=== PATIENT | female | born 1985 | race Two or more races ===

== ENCOUNTER 2025-03-11 16:01 | Emergency (ER) | payer MEDICAID ==
[~2025-03-11] VITALS: Ht 167.6 cm; Wt 103.4 kg
[2025-03-11 16:20] VITALS: BP 137/83; RESP 16; TEMP 98.5; O2SAT 97
[2025-03-11 16:29] VITALS: PULSE 71
[2025-03-11 23:00] LABS: Urine Bacteria FEW /hpf (None Seen); Urine Blood 2+ /uL (Negative); Urine Clarity Clear (Clear); Urine Color Light-Yellow (Yellow); Urine Protein, UAD TRACE (Negative); Urine Specific Gravity 1.043 (1.001-1.035); Urine Squamous Epithelial Cell MOD /hpf (<5); Urine Urobilinogen Normal (Negative); Urine WBC 38 /HPF (0-5)
--- NOTE | 2025-03-14 20:45 | ECG ---
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
== END 2025-03-11 18:52 | disposition left against medical advice (07) ==
LOC: ER 16:01
DX: M79.602 Pain in left arm (principal); Z53.21 Procedure and treatment not carried out due to patient leaving prior to being seen by health care provider
CPT/HCPCS: 81001; 93005

== ENCOUNTER 2025-03-11 22:29 | Emergency (ER) | payer MEDICAID ==
[~2025-03-11] VITALS: Ht 167.6 cm; Wt 103.2 kg
--- NOTE | 2025-03-11 22:40 | ECG ---
[facility] Test Date: 2025-03-11 Test Time: 22:34:58 Pat Name: HUNTER PATRICK Department: ED Room: Gender: F Engine Assembler: SHAMAR : 1985 Requested By: EMERGENCY EMERGENCY Order Number: [id number] Reading MD: Nils Beaver Measurements Intervals [place] Rate: 76 P: 41 TN: 200 QRS: 19 QRSD: 103 T: 37 QT: 414 QTc: 466 Interpretive Statements Sinus rhythm Electronically Signed On 03-14-2025 20:48:44 PDT by Nils Beaver Please click the below link to view image of tracing.
[2025-03-12 00:29] LABS: Basophils # (auto) 0 10 ^3/uL (0-0.2); Basophils % (auto) 0.3 % (0.0-2.0); Eosinophils # (auto) 0.1 10 ^3/uL (0-0.8); Eosinophils % (auto) 0.8 % (0.0-7.0); Hematocrit 42.1 % (36.0-46.0); Lymphocytes # (auto) 3.4 10 ^3/uL (0.4-5.4); Lymphocytes % (auto) 40.8 % (10.0-50.0); Mean Corpuscular Hemoglobin 25.1 pg (28.0-32.0); Mean Corpuscular Hgb Conc. 33.2 g/dL (32.0-36.0); Mean Corpuscular Volume 75.5 fL (80.0-100.0); Monocytes # (auto) 0.5 10 ^3/uL (0-1.3); Monocytes % (auto) 6.5 % (0.0-12.0); Neutrophils # (auto) 4.3 10 ^3/uL (1.6-8.6); Neutrophils % (auto) 51.6 % (37.0-80.0); Nucleated Red Blood Cells % 0.1 %; Platelet Count (auto) 278 10^3/uL (140-450); Red Blood Cells 5.57 10^6/uL (4.0-5.20); Red Cell Distribution Width 14.8 % (11.8-14.3); White Blood Cell 8.3 10^3/uL (4.4-10.8)
[2025-03-12 00:48] LABS: Albumin 4.7 g/dL (3.2-4.8); Alkaline Phosphatase 71 U/L (46-116); Anion Gap 9 (5-15); Aspartate Aminotransferase 32 U/L (13-40); BUN/Creatinine Ratio 9.9 (10.0-20.0); Blood Urea Nitrogen 9 mg/dL (9-23); Carbon Dioxide 26 mmol/L (20-31); Chloride 100 mmol/L (98-107); Lipase 37 U/L (12-53); Potassium 3.8 mmol/L (3.5-5.1)
[2025-03-12 00:49] LABS: Bilirubin, Total 0.6 mg/dL (0.2-1.0)
[2025-03-12 01:04] LABS: Alanine Aminotransferase 76 U/L (7-40); Glucose 299 mg/dL (74-106); Sodium 135 mmol/L (136-145)
--- NOTE | 2025-03-12 01:36 | DVH ---
CHEST RADIOGRAPH Indication: cp Technique: Single frontal view of the chest was obtained COMPARISON: None FINDINGS: Lines and Tubes: None Lungs: Clear Pleura: No effusion. No pneumothorax. Cardiomediastinal contours: Unremarkable IMPRESSION: No abnormality demonstrated.
--- NOTE | 2025-03-12 02:22 | ED.PDOC ---
History of Present Illness HPI Comments Patient states yesterday she was started having bilateral arm pain which came on unprovoked. She initially came to emergency department in the left case she had �things take care of�. She came back tonight because she was still feeling he was mild chest pressure and shortness a breath. States she does have a history of anxiety, she was states she was also been stress. Nothing makes it better, nothing makes it worse. Patient denies any chest pain currently. She was states she was has been feeling some mild shortness a breath. She was says she feels as though she was a hard time catching her breath. Chief Complaint: Shortness of Breath Time Seen by MD: 23:51 Primary Care Provider: ? 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 Family History Family History: No family hx of DM Social History Smoker: Non-Smoker Alcohol: Denies ETOH Use Drugs: Denies Drug Use Lives In: Home Constitutional: reports: malaise; denies: chills, diaphoresis, fatigue, fever, sweats, weakness, others EENTM: denies: blurred vision, double vision, ear bleeding, ear discharge, ear drainage, ear pain, ear ringing, eye pain, eye redness, hearing loss, mouth pain, mouth swelling, nasal discharge, nose bleeding, nose congestion, nose pain, photophobia, tearing, throat pain, throat swelling, voice changes, others Respiratory: reports: SOB at rest; denies: cough, hemoptysis, orthopnea, shortness of breath, SOB with excertion, stridor, wheezing, others Cardiovascular: denies: chest pain, dizzy spells, diaphoresis, Dyspnea on exertion, edema, irregular heart beat, left arm pain, lightheadedness, palpitations, PND, syncope, others Gastrointestinal: denies: abdomen distended, abdominal pain, blood streaked bowels, constipated, diarrhea, dysphagia, difficulty swallowing, hematemesis, melena, nausea, poor appetite, poor fluid intake, rectal bleeding, rectal pain, vomiting, others Genitourinary: denies: abnormal vagina bleeding, burning, dyspareunia, dysuria, flank pain, frequency, hematuria, incontinence, pain, , vagina discharge, urgency, others Neurological: denies: dizziness, fainting, headache, left sided numbness, left sided weakness, numbness, paresthesia, pre-existing deficit, right sided numbness, right sided weakness, seizure, speech problems, tingling, tremors, weakness, others Musculoskeletal: denies: back pain, gout, joint pain, joint swelling, muscle pain, muscle stiffness, neck pain, others Integumetry: denies: bruises, change in color, change in hair/nails, dryness, laceration, lesions, lumps, rash, wounds, others Allergic/Immunocompromised: denies: Difficulty Healing, Frequent Infections, Hives, Itching, others Hematologic/Lymphatic: denies: anemia, blood clots, easy bleeding, easy bruising, swollen glands, others Physical Exam General Appearance: No Apparent Distress, Normal HEENT: Normal ENT Inspection, Pharynx Normal, TMs Normal Neck: Full Range of Motion, Non-Tender, Normal, Normal Inspection Respiratory: Chest Non-Tender, Lungs Clear, No Accessory Muscle Use, No Respiratory Distress, Normal Breath Sounds Cardiovascular: No Edema, No JVD, No Murmur, No Gallop, Normal Peripheral Pulses, Regular Rate/Rhythm Breast Exam: Deferred Gastrointestinal: No Organomegaly, Non Tender, No Pulsatile Mass, Normal Bowel Sounds, Soft Genitalia: Deferred Pelvic: Deferred Rectal: Deferred Extremities: No calf tenderness, Normal capillary refill, Normal inspection, Normal range of motion, Non-tender, No pedal edema Musculoskeletal : Apperance: Normal Neurologic: Alert, director medical science II-XII nml as Tested, No Motor Deficits, Normal Affect, Normal Mood, No Sensory Deficits Cerebellar Function: Normal Reflexes: Normal Skin: Dry, Normal Color, Warm Lymphatic: No Adenopathy Was a procedure done? Was a procedure done?: No Differential Dx Considerations may include: DE, gastritis, he was gastric reflux, diabetes, hyperglycemia. X-Ray, Labs, Meds, VS Vital Signs Date Time Temp Pulse Resp B/P (MAP) Pulse Ox O2 Delivery O2 Flow Rate FiO2 03/12/25 00:31 70 20 96 Room Air 03/12/25 00:31 97.8 75 20 129/89 (102) 99 97.8 03/11/25 22:45 97.9 82 18 141/92 (108) 96 97.9 03/11/25 22:34 76 Lab Test 03/12/25 00:13 Range/Units White Blood Count 8.3 4.4-10.8 10^3/uL Red Blood Count 5.57 H 4.0-5.20 10^6/uL Hemoglobin 14.0 12.2-16.2 g/dL Hematocrit 42.1 36.0-46.0 % Mean Corpuscular Volume 75.5 L 80.0-100.0 fL Mean Corpuscular Hemoglobin 25.1 L 28.0-32.0 pg Mean Corpuscular Hemoglobin Concent 33.2 32.0-36.0 g/dL Red Cell Distribution Width 14.8 H 11.8-14.3 % Platelet Count 278 140-450 10^3/uL Mean Platelet Volume 8.1 6.9-10.8 fL Neutrophils (%) (Auto) 51.6 37.0-80.0 % Lymphocytes (%) (Auto) 40.8 10.0-50.0 % Monocytes (%) (Auto) 6.5 0.0-12.0 % Eosinophils (%) (Auto) 0.8 0.0-7.0 % Basophils (%) (Auto) 0.3 0.0-2.0 % Neutrophils # (Auto) 4.3 1.6-8.6 10 ^3/uL Lymphocytes # (Auto) 3.4 0.4-5.4 10 ^3/uL Monocytes # (Auto) 0.5 0-1.3 10 ^3/uL Eosinophils # (Auto) 0.1 0-0.8 10 ^3/uL Basophils # (Auto) 0 0-0.2 10 ^3/uL Nucleated Red Blood Cells 0.1 % Sodium Level 135 L 136-145 mmol/L Potassium Level 3.8 3.5-5.1 mmol/L Chloride Level 100 98-107 mmol/L Carbon Dioxide Level 26 20-31 mmol/L Anion Gap 9 5-15 Blood Urea Nitrogen 9 9-23 mg/dL Creatinine 0.91 0.550-1.02 mg/dL Glomerular Filtration Rate Calc 82 >90 mL/min BUN/Creatinine Ratio 9.9 L 10.0-20.0 Serum Glucose 299 H 74-106 mg/dL Calcium Level 10.0 8.7-10.4 mg/dL Total Bilirubin 0.6 0.2-1.0 mg/dL Aspartate Amino Transferase (AST) 32 13-40 U/L Alanine Aminotransferase (ALT) 76 H 7-40 U/L Alkaline Phosphatase 71 46-116 U/L Troponin I High Sensitivity < 3 L </=34 ng/L Total Protein 8.0 5.7-8.2 g/dL Albumin 4.7 3.2-4.8 g/dL Lipase 37 12-53 U/L X-Ray, Labs, Meds, VS Comment Imaging: X-rays and CT scans were reviewed and interpreted by this provider, imaging shows no fractures and no pathological disease. Pending radiology review. Laboratory: Labs reviewed and interpreted by this provider. Blood sugar of 299 No prior history of diabetes, advised to follow up with PCP for further evaluation Patient has prior medical visits reviewed. Med reconciliation performed Vital signs reviewed Time of 1ST Reevaluation: 02:22 Reevaluation 1ST: Improved Patient Education/Counseling: Diagnosis, Treatment, Need For Follow Up (Follow up in the emergency department in the next 24-48 hours if symptoms worsen. It was advised to follow up with your primary care doctor in the next 3-4 days for further evaluation.) Family Education/Counseling: Diagnosis Departure 1 Departure Time of Disposition: 02:21 Impression: Primary Impression: Hyperglycemia due to diabetes mellitus Disposition: 01 HOME / SELF CARE / HOMELESS Condition: Fair Discharged With: Self Critical Care Note Critical Care Time?: No Stability Stability form required: No Heart Score Heart Score: Heart Score Response (Comments) Value History N/A 0 EKG N/A 0 Age N/A 0 Risk Factors N/A 0 Troponin N/A 0 Total 0 NELA JENSEN March 12, 2025 02:22
[2025-03-12 02:45] VITALS: BP 129/95; PULSE 75; TEMP 98.5
[2025-03-12 02:52] VITALS: RESP 16; O2SAT 98
[2025-03-14] MEDS ORDERED: BLOO1KIT XX (11:37)
[2025-03-14] MEDS ORDERED: LANC-347 XX (11:37)
[2025-03-14] MEDS ORDERED: METF-370 PO (11:37)
[2025-03-14] MEDS ORDERED: GLUC1TES63 VI (11:37)
[2025-03-14] MEDS ORDERED: NITR50CA24 PO (11:39)
== END 2025-03-12 02:51 | disposition home or self-care (01) ==
LOC: ER 22:29
DX: E11.65 Type 2 diabetes mellitus with hyperglycemia (principal); M79.601 Pain in right arm; M79.602 Pain in left arm; R06.02 Shortness of breath; R07.89 Other chest pain; Z98.890 Other specified postprocedural states
CPT/HCPCS: 36415; 71045; 80053; 83690; 84484; 85025; 93005

== ENCOUNTER 2025-03-13 15:12 | Inpatient (IN) | payer MEDICAID ==
[~2025-03-13] VITALS: Ht 170.2 cm; Wt 103.0 kg
[2025-03-13 17:15] LABS: Basophils # (auto) 0 10 ^3/uL (0-0.2); Basophils % (auto) 0.5 % (0.0-2.0); Eosinophils # (auto) 0.1 10 ^3/uL (0-0.8); Eosinophils % (auto) 0.9 % (0.0-7.0); Hematocrit 40.5 % (36.0-46.0); Hemoglobin 13.6 g/dL (12.2-16.2); Lymphocytes # (auto) 2.2 10 ^3/uL (0.4-5.4); Mean Corpuscular Hemoglobin 25.2 pg (28.0-32.0); Mean Corpuscular Hgb Conc. 33.6 g/dL (32.0-36.0); Mean Corpuscular Volume 74.9 fL (80.0-100.0); Monocytes # (auto) 0.4 10 ^3/uL (0-1.3); Monocytes % (auto) 6.5 % (0.0-12.0); Neutrophils # (auto) 3.4 10 ^3/uL (1.6-8.6); Neutrophils % (auto) 56.1 % (37.0-80.0); Nucleated Red Blood Cells % 0.3 %; Platelet Count (auto) 279 10^3/uL (140-450); Red Cell Distribution Width 15.1 % (11.8-14.3)
--- NOTE | 2025-03-13 17:22 | DVH ---
INDICATION: sob TECHNIQUE: Frontal view of the chest. COMPARISON: XY CHEST XRAY 1 VIEW on DOS: 03/12/25 FINDINGS: Finding:. The heart and mediastinal contours are grossly unremarkable. There is no evidence of pleur al disease. The lungs are clear. The bony structures of the chest are intact without fracture. IMPRESSION: 1. No evidence of acute disease.
[2025-03-13 17:26] LABS: Chloride 100 mmol/L (98-107); Potassium 3.8 mmol/L (3.5-5.1)
[2025-03-13 17:27] LABS: Anion Gap 7 (5-15); Carbon Dioxide 27 mmol/L (20-31)
[2025-03-13 17:28] LABS: Calcium 9.7 mg/dL (8.7-10.4)
[2025-03-13 17:32] LABS: Blood Urea Nitrogen 10 mg/dL (9-23)
--- NOTE | 2025-03-13 17:50 | ED.PDOC ---
History of Present Illness HPI Comments 39-year-old female presents with recent diagnosis of diabetes however patient eloped from the emergency department several days ago. Patient reports that his symptoms have worsened him with dizziness blurry vision paresthesias dry mouth frequent urination and generally feeling unwell. Chief Complaint: Shortness of Breath Time Seen by MD: 15:19 Primary Care Provider: ? 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 Family History Family History: No family hx of DM Social History Smoker: Non-Smoker Alcohol: Denies ETOH Use Drugs: Denies Drug Use Lives In: Home All Other Systems: Reviewed and Negative Physical Exam General Appearance: Normal HEENT: Pharynx Normal Neck: Normal Inspection Respiratory: No Respiratory Distress Cardiovascular: No Edema Breast Exam: Normal Gastrointestinal: Non Tender Genitalia: Deferred Pelvic: Deferred Rectal: Deferred Extremities: Normal range of motion Neurologic: No Motor Deficits Cerebellar Function: NOT DONE Reflexes: NOT DONE Skin: Normal Color Lymphatic: NOT DONE Was a procedure done? Was a procedure done?: No Differential Dx Considerations may include: Diabetes, viral syndrome, electrolyte abnormality, metabolic disarray X-Ray, Labs, Meds, VS Vital Signs Date Time Temp Pulse Resp B/P (MAP) Pulse Ox O2 Delivery O2 Flow Rate FiO2 03/13/25 15:37 16 96 Room Air 03/13/25 15:37 98.4 79 16 143/88 (106) 96 98.4 Lab Test 03/13/25 17:47 03/13/25 16:52 Range/Units Troponin I High Sensitivity < 3 L 3 L </=34 ng/L White Blood Count 6.0 # 4.4-10.8 10^3/uL Red Blood Count 5.40 H 4.0-5.20 10^6/uL Hemoglobin 13.6 12.2-16.2 g/dL Hematocrit 40.5 36.0-46.0 % Mean Corpuscular Volume 74.9 L 80.0-100.0 fL Mean Corpuscular Hemoglobin 25.2 L 28.0-32.0 pg Mean Corpuscular Hemoglobin Concent 33.6 32.0-36.0 g/dL Red Cell Distribution Width 15.1 H 11.8-14.3 % Platelet Count 279 140-450 10^3/uL Mean Platelet Volume 8.2 6.9-10.8 fL Neutrophils (%) (Auto) 56.1 37.0-80.0 % Lymphocytes (%) (Auto) 36.0 10.0-50.0 % Monocytes (%) (Auto) 6.5 0.0-12.0 % Eosinophils (%) (Auto) 0.9 0.0-7.0 % Basophils (%) (Auto) 0.5 0.0-2.0 % Neutrophils # (Auto) 3.4 1.6-8.6 10 ^3/uL Lymphocytes # (Auto) 2.2 0.4-5.4 10 ^3/uL Monocytes # (Auto) 0.4 0-1.3 10 ^3/uL Eosinophils # (Auto) 0.1 0-0.8 10 ^3/uL Basophils # (Auto) 0 0-0.2 10 ^3/uL Nucleated Red Blood Cells 0.3 % Sodium Level 134 L 136-145 mmol/L Potassium Level 3.8 3.5-5.1 mmol/L Chloride Level 100 98-107 mmol/L Carbon Dioxide Level 27 20-31 mmol/L Anion Gap 7 5-15 Blood Urea Nitrogen 10 9-23 mg/dL Creatinine 0.91 0.550-1.02 mg/dL Glomerular Filtration Rate Calc 82 >90 mL/min BUN/Creatinine Ratio 11.0 10.0-20.0 Serum Glucose 303 H 74-106 mg/dL Calcium Level 9.7 8.7-10.4 mg/dL B-Type Natriuretic Peptide 10.11 0-100 pg/mL Time of 1ST Reevaluation: 18:41 Reevaluation 1ST: Improved Patient Education/Counseling: Diagnosis, Treatment Family Education/Counseling: No Family Present Departure 1 Departure Time of Disposition: 18:41 (Patient with new onset diabetes. Diabetes uncontrolled. We will admit patient for further workup and expert consultation) Impression: Primary Impression: New onset type 2 diabetes mellitus Additional Impression: Generalized weakness Disposition: 09 ADMITTED INPATIENT Admit to: Med Surg Condition: Serious Critical Care Note Critical Care Time?: No Stability Stability form required: No Heart Score Heart Score: Heart Score Response (Comments) Value History N/A 0 EKG N/A 0 Age N/A 0 Risk Factors N/A 0 Troponin N/A 0 Total 0 AUDIE DAY MD March 13, 2025 17:50
[2025-03-13 18:07] LABS: Glucose 303 mg/dL (74-106); Sodium 134 mmol/L (136-145)
[2025-03-13] MEDS ORDERED: DEXTROSE (50%) 50ML SYRG IV PRN (19:30)
[2025-03-13 20:14] VITALS: PULSE 73; RESP 16; O2SAT 96
[2025-03-13] MEDS: ACETAMINOPHEN 325 MG TAB PO PRN (20:17)
--- NOTE | 2025-03-13 23:12 | DVHHP2 ---
History of Present Illness Reason for Visit: Generalized weakness History of Present Illness 39-year-old female presents for evaluation of generalized weakness. Patient reports being recently diagnosed with diabetes mellitus. She is currently on no medication. She reports worsening dizziness, dry mouth and frequent urination over the past couple of days. Denies chest pain or palpitations. No other acute complaints. Past Medical History Denies Past Surgical History Family History Noncontributory Smoke: No ALCOHOL: none Drugs: None Lives: with Family Review of Systems Review of Systems Review of systems are currently negative otherwise addressed in HPI. Allergies: Coded Allergies: NO KNOWN ALLERGIES (Unverified , 04/27/13) Medications Current Medications Medications Dose Ordered Sig/Gideon Route Start Time Stop Time Status Last Admin Dose Admin Diagnostic Test (Pha) 1 strip Q6HR 03/14/25 00:00 Insulin Human Regular Q6HR SC 03/14/25 00:00 Dextrose 50 ml UD PRN IV 03/13/25 19:30 Acetaminophen 650 mg Q6HP PRN PO 03/13/25 19:30 03/13/25 20:17 650 MG Exam Vital Signs Vital Signs Date Time Temp Pulse Resp B/P (MAP) Pulse Ox O2 Delivery O2 Flow Rate FiO2 03/13/25 20:17 99.2 03/13/25 20:14 73 16 133/97 (109) 96 03/13/25 20:14 Room Air* 0 21 Exam Gen: 39-year-old female in mild distress. Skin: Warm, dry, normal color and texture, no rash. HEENT: Normocephalic atraumatic, mucous membranes moist and pink. Neck: Cervical and supraclavicular nodes normal without enlargement, trachea is midline, thyroid gland is normal without masses. Pulmonary: Clear to auscultation and percussion bilaterally. Cardiac: Regular rate and rhythm. No murmur Abdomen: Soft, nontender, nondistended, bowel sounds present all 4 quadrants, no guarding, no rigidity, no organomegaly. Extremities: No cyanosis, clubbing, no edema Neuro: Cranial nerves II through XII grossly intact, normal affect and speech, no focal motor deficits. Labs/Xrays ORDERING PHYSICIAN: AUDIE DAY MD PROCEDURE(s): CXRP - CHEST PORTABLE REASON: sob ORDER NUMBER(s): [id number], ACCESSION NUMBER(s): [id number] INDICATION: sob TECHNIQUE: Frontal view of the chest. COMPARISON: XY CHEST XRAY 1 VIEW on DOS: 03/12/25 FINDINGS: Finding:. The heart and mediastinal contours are grossly unremarkable. There is no evidence of pleural disease. The lungs are clear. The bony structures of the chest are intact without fracture. IMPRESSION: 1. No evidence of acute disease. P Labs Test 03/13/25 19:50 03/13/25 16:52 Range/Units Troponin I High Sensitivity < 3 L </=34 ng/L White Blood Count 6.0 # 4.4-10.8 10^3/uL Red Blood Count 5.40 H 4.0-5.20 10^6/uL Hemoglobin 13.6 12.2-16.2 g/dL Hematocrit 40.5 36.0-46.0 % Mean Corpuscular Volume 74.9 L 80.0-100.0 fL Mean Corpuscular Hemoglobin 25.2 L 28.0-32.0 pg Mean Corpuscular Hemoglobin Concent 33.6 32.0-36.0 g/dL Red Cell Distribution Width 15.1 H 11.8-14.3 % Platelet Count 279 140-450 10^3/uL Mean Platelet Volume 8.2 6.9-10.8 fL Neutrophils (%) (Auto) 56.1 37.0-80.0 % Lymphocytes (%) (Auto) 36.0 10.0-50.0 % Monocytes (%) (Auto) 6.5 0.0-12.0 % Eosinophils (%) (Auto) 0.9 0.0-7.0 % Basophils (%) (Auto) 0.5 0.0-2.0 % Neutrophils # (Auto) 3.4 1.6-8.6 10 ^3/uL Lymphocytes # (Auto) 2.2 0.4-5.4 10 ^3/uL Monocytes # (Auto) 0.4 0-1.3 10 ^3/uL Eosinophils # (Auto) 0.1 0-0.8 10 ^3/uL Basophils # (Auto) 0 0-0.2 10 ^3/uL Nucleated Red Blood Cells 0.3 % Sodium Level 134 L 136-145 mmol/L Potassium Level 3.8 3.5-5.1 mmol/L Chloride Level 100 98-107 mmol/L Carbon Dioxide Level 27 20-31 mmol/L Anion Gap 7 5-15 Blood Urea Nitrogen 10 9-23 mg/dL Creatinine 0.91 0.550-1.02 mg/dL Glomerular Filtration Rate Calc 82 >90 mL/min BUN/Creatinine Ratio 11.0 10.0-20.0 Serum Glucose 303 H 74-106 mg/dL Hemoglobin A1c 9.9 H <5.7 % A1C Calcium Level 9.7 8.7-10.4 mg/dL B-Type Natriuretic Peptide 10.11 0-100 pg/mL Assessment/Plan Assessment/Plan Assessment Uncontrolled diabetes mellitus, new onset Mild dehydration Plan Admit the patient to [facility] to the hospitalist Diabetic business analysis analyst Maintenance IV fluids Hemoglobin A1c pending Continue treatment per orders. Plan discussed with: Patient My Orders Orders - NIKKO WHITMAN Procedure Category Date Status Time *Rn Architecture Intern REFER 03/13/25 Transmitted Referral 19:28 Consistent DIET 03/14/25 Transmitted Carb(Ccho)Diabetes Breakfast Basic Metabolic Panel LAB 03/14/25 Verified 04:00 Glucose Blood PHA 03/14/25 In Process (Accu-Chek Comfort 00:00 Insulin R (Human) PHA 03/14/25 In Process (Insulin R) 00:00 Dextrose 50% Syringe PHA 03/13/25 In Process 19:30 Admit ADMIT 03/13/25 Transmitted 19:28 Condition: Stable ASHLEY 03/13/25 In Process 19:28 Acetaminophen Tablet PHA 03/13/25 In Process (Tylenol Tablet) 19:30 Bedrest With Bathroom ASHLEY 03/13/25 In Process Privileg 19:28 Date of Service: March 13, 2025 Billing Provider: NIKKO WHITMAN Common Visit Codes: [id number] INP/OBS CARE (MOD) NIKKO WHITMAN March 13, 2025 23:12
[2025-03-14] MEDS: ACCU-CHEK COMFORT CURVE STRIP VI SCH (00:14)
[2025-03-14] MEDS: SODIUM CHLORIDE 0.9% 1,000 ML IV ONE (00:15)
[2025-03-14] MEDS: InsuLIN REG 1unit/0.01ml Soln (100units/ml) SC SCH (00:22)
[2025-03-14 01:00] VITALS: BP 115/75; PULSE 69; RESP 16; TEMP 98.1; O2SAT 97
[2025-03-14 04:56] VITALS: BP 126/72; PULSE 67; RESP 16; TEMP 97.5; O2SAT 96
[2025-03-14 05:21] LABS: Anion Gap 9 (5-15); Carbon Dioxide 27 mmol/L (20-31); Chloride 101 mmol/L (98-107); Sodium 137 mmol/L (136-145)
[2025-03-14 05:23] LABS: Calcium 9.5 mg/dL (8.7-10.4)
[2025-03-14 05:27] LABS: BUN/Creatinine Ratio 13.2 (10.0-20.0); Blood Urea Nitrogen 10 mg/dL (9-23)
[2025-03-14 05:37] LABS: Glucose 175 mg/dL (74-106); Potassium 3.2 mmol/L (3.5-5.1)
[2025-03-14 08:12] VITALS: BP 118/76; PULSE 63; RESP 16; TEMP 97.6; O2SAT 98
[2025-03-14 08:26] LABS: Urine Bacteria FEW /hpf (None Seen); Urine Blood 1+ /uL (Negative); Urine Clarity Turbid (Clear); Urine Color Yellow (Yellow); Urine Mucus FEW (None Seen); Urine Protein, UAD 1+ (Negative); Urine Specific Gravity 1.026 (1.001-1.035); Urine Squamous Epithelial Cell MOD /hpf (<5); Urine Urobilinogen 3 mg/dL (Negative); Urine WBC 29 /HPF (0-5)
--- NOTE | 2025-03-14 11:06 | DVHPN2 ---
Objective Vitals Vital Signs Date Time Temp Pulse Resp B/P (MAP) Pulse Ox O2 Delivery O2 Flow Rate FiO2 03/14/25 08:12 97.6 63 16 118/76 (90) 98 97.6 03/13/25 20:14 Room Air* 0 21 Medications Current Medications Medications Dose Ordered Sig/Gideon Route Start Time Stop Time Status Last Admin Dose Admin Diagnostic Test (Pha) 1 strip Q6HR 03/14/25 00:00 03/14/25 06:05 1 STRIP Insulin Human Regular Q6HR SC 03/14/25 00:00 03/14/25 06:07 3 UNITS Dextrose 50 ml UD PRN IV 03/13/25 19:30 Acetaminophen 650 mg Q6HP PRN PO 03/13/25 19:30 03/13/25 20:17 650 MG Laboratory Results Laboratory Tests 03/13/25 16:52 03/14/25 04:33 Chemistry Test 03/13/25 16:52 03/14/25 04:33 Calcium Level 9.7 mg/dL (8.7-10.4) 9.5 mg/dL (8.7-10.4) Cardiac Markers Test 03/13/25 16:52 B-Type Natriuretic Peptide 10.11 pg/mL (0-100) HgA1c, TSH Test 03/13/25 16:52 Hemoglobin A1c 9.9 % A1C (<5.7) H Urinalysis Test 03/14/25 07:51 Urine Color Yellow (Yellow) Urine Clarity Turbid (Clear) H Urine pH 6.0 (5.0-9.0) Urine Specific Zimmerman 1.026 (1.001-1.035) Urine Protein 1+ (Negative) H Urine Ketones 3+ (Negative) H Urine Blood 1+ /uL (Negative) H Urine Nitrite Negative (Negative) Urine Bilirubin Negative (Negative) Urine Urobilinogen 3 mg/dL (Negative) H Urine Leukocyte Esterase 3+ /uL (Negative) Urine RBC 5 /hpf (0 - 4) Urine Microscopic WBC 29 /HPF (0-5) H Urine Squamous Epithelial Cells Mod /hpf (<5) Urine Bacteria Few /hpf (None Seen) H Urine Mucus Few (None Seen) Urine Glucose Normal mg/dL (Normal) CARLOS ALBERTO LI MD March 14, 2025 11:06
[2025-03-14] MEDS ORDERED: BLOO1KIT XX ×2 (11:37)
[2025-03-14] MEDS ORDERED: METF-370 PO ×2 (11:37)
[2025-03-14] MEDS ORDERED: LANC-347 XX ×2 (11:37)
[2025-03-14] MEDS ORDERED: GLUC1TES63 VI ×2 (11:37)
[2025-03-14] MEDS ORDERED: NITR50CA24 PO ×2 (11:39)
--- NOTE | 2025-03-14 11:39 | DVHDS2 ---
Discharge Summary Date of Admission March 13, 2025 at 19:28 Date of Discharge: March 14, 2025 Admitting Diagnosis Uncontrolled diabetes mellitus, new onset Mild dehydration Labs/Diagnostic Data: Laboratory Results Test 03/14/25 07:51 03/14/25 06:04 03/14/25 04:33 03/13/25 19:50 Urine Color Yellow (Yellow) Urine Clarity Turbid (Clear) Urine pH 6.0 (5.0-9.0) Urine Specific Globe 1.026 (1.001-1.035) Urine Protein 1+ (Negative) Urine Ketones 3+ (Negative) Urine Blood 1+ /uL (Negative) Urine Nitrite Negative (Negative) Urine Bilirubin Negative (Negative) Urine Urobilinogen 3 mg/dL (Negative) Urine Leukocyte Esterase 3+ /uL (Negative) Urine RBC 5 /hpf (0 - 4) Urine Microscopic WBC 29 /HPF (0-5) Urine Squamous Epithelial Cells Mod /hpf (<5) Urine Bacteria Few /hpf (None Seen) Urine Mucus Few (None Seen) Urine Glucose Normal mg/dL (Normal) POC Glucose 191 mg/dl (70-106) Sodium Level 137 mmol/L (136-145) Potassium Level 3.2 mmol/L (3.5-5.1) Chloride Level 101 mmol/L (98-107) Carbon Dioxide Level 27 mmol/L (20-31) Anion Gap 9 (5-15) Blood Urea Nitrogen 10 mg/dL (9-23) Creatinine 0.76 mg/dL (0.550-1.02) Glomerular Filtration Rate Calc 102 mL/min (>90) BUN/Creatinine Ratio 13.2 (10.0-20.0) Serum Glucose 175 mg/dL (74-106) Calcium Level 9.5 mg/dL (8.7-10.4) Troponin I High Sensitivity < 3 ng/L (</=34) Test 03/13/25 16:52 White Blood Count 6.0 10^3/uL (4.4-10.8) Red Blood Count 5.40 10^6/uL (4.0-5.20) Hemoglobin 13.6 g/dL (12.2-16.2) Hematocrit 40.5 % (36.0-46.0) Mean Corpuscular Volume 74.9 fL (80.0-100.0) Mean Corpuscular Hemoglobin 25.2 pg (28.0-32.0) Mean Corpuscular Hemoglobin Concent 33.6 g/dL (32.0-36.0) Red Cell Distribution Width 15.1 % (11.8-14.3) Platelet Count 279 10^3/uL (140-450) Mean Platelet Volume 8.2 fL (6.9-10.8) Neutrophils (%) (Auto) 56.1 % (37.0-80.0) Lymphocytes (%) (Auto) 36.0 % (10.0-50.0) Monocytes (%) (Auto) 6.5 % (0.0-12.0) Eosinophils (%) (Auto) 0.9 % (0.0-7.0) Basophils (%) (Auto) 0.5 % (0.0-2.0) Neutrophils # (Auto) 3.4 10 ^3/uL (1.6-8.6) Lymphocytes # (Auto) 2.2 10 ^3/uL (0.4-5.4) Monocytes # (Auto) 0.4 10 ^3/uL (0-1.3) Eosinophils # (Auto) 0.1 10 ^3/uL (0-0.8) Basophils # (Auto) 0 10 ^3/uL (0-0.2) Nucleated Red Blood Cells 0.3 % Hemoglobin A1c 9.9 % A1C (<5.7) B-Type Natriuretic Peptide 10.11 pg/mL (0-100) Other Laboratory Tests 03/14/25 04:33 03/13/25 16:52 Brief Hx & Hospital Course: This is a 39 years old female come to emergency department because generalized weakness. The patient was recently diagnosis with diabetes. The patient did not take any medication . She started having dry mouth and frequent urination over past couple day. So she decided to come to hospital for further evaluation. The serum blood glucose was 303. The patient was started on sliding scale insulin and Lantus. Today her blood glucose improved at 175. Her hemoglobin A1c was 9.9. The patient will be discharged home with oral diabetes medication. Advised the patient to follow up with primary care physician 1-2 weeks. I also give the patient a glucometer and advised her to check her blood glucose every day before breakfast and keep a log. Teaching the patient hypoglycemia symptoms. Follow up with primary care physician to continuing to monitor and treat her diabetes. Physical exam: HEENT: Normocephalic atraumatic pupils equal react to light and accommodation. Extraocular muscles intact, conjunctiva pink, oropharynx moist, no thrush, no exudate. Lymphatic: No lymphadenopathy Cardiovascular exam: S1, S2 was heard. No murmurs, rubs, gallops Lung: Clear on auscultation bilaterally, no wheeze, rale, rhonchi. GI: Abdominal soft, nondistended, nontenderness, positive bowel sounds. Extremity: No crepitus, cyanosis, edema. Pedal pulses present bilateral. Full range of motion. Skin: Normal turgor, no rash. Psych: Alert, oriented x3. Neurology: No focal deficits, cranial nerve II to XII grossly intact. This medical document was created using an electronic medical record system with [employer] direct computerized dictation system. Although this document has been carefully reviewed, there may still be some phonetic and typographical errors. These areas are purely typographical due to imperfections of the software programs, and do not reflect any compromise in the patient's medical care. Condition at Discharge: Stable Final Diagnosis/Problems List Uncontrolled diabetes mellitus, new onset Mild dehydration Discharge Disposition: Home Discharge Instruct/Medications Diet: Consistent carbohydrate Activity: No Restrictions, As Tolerated Follow Up/Referral: pcp 1-2 weeks Discharge Statement: "Patient was advised to return to the ER or call 911 if any headaches, dizziness, shortness of breath, chest pain, abdominal pain, bleeding, fevers, or worsening of medical condition. Patient was counseled about treatment plan, medications, possible side effects, patientverbalized understanding. All questions were answered to the best of my ability. This discharge took greater then 30 minutes in planning, reviewing documentation, counseling the patient, and discussing with other team members." ASSESSMENT ASSESSMENT Assessment Dm type 2 Date of Service: March 14, 2025 Billing Provider: CARLOS ALBERTO LI MD Common Visit Codes: 36800-WUQ/OBS DISCH DAY >30min CARLOS ALBERTO LI MD March 14, 2025 11:39
[2025-03-14] MEDS: POTASSIUM CHL 20 Meq TABLET PO ONE (11:41)
[2025-03-14] MEDS: metFORMIN HYDROCHLORIDE 500 MG TAB PO ONE (11:56)
[2025-03-14] MEDS ORDERED: INSULIN LANTUS (GLARGINE) 1 /0.01ml (100units/ml) SC SCH (22:00)
== END 2025-03-14 12:12 | disposition home or self-care (01) | DRG 420 ==
LOC: ER 15:12 → EDBD 15:12 → OVERFLOW 19:28
PROVIDERS: ADMIT Internal Medicine; ATTEND Internal Medicine
DX: E11.65 Type 2 diabetes mellitus with hyperglycemia (principal); E86.0 Dehydration; Z53.29 Procedure and treatment not carried out because of patient's decision for other reasons; R35.0 Frequency of micturition; Z98.891 History of uterine scar from previous surgery
CPT/HCPCS: 36415; 71045; 80048; 81001; 82962; 83036; 83880; 84484; 85025; G0378; J1815